=== PATIENT | male | born 1990 | race Caucasian/White ===

== ENCOUNTER 2017-06-17 12:31 | Emergency (ER) | payer OTHER ==
[~2017-06-17] VITALS: Wt 115.9 kg
--- NOTE | 2017-06-17 13:44 | RADRPT ---
PROCEDURE: XR Forearm Right CLINICAL INDICATION: Contusion TECHNIQUE: Two views of the right forearm. COMPARISON: None. FINDINGS: There are no fractures or dislocations. The mineralization is normal. The soft tissues are unremar kable. IMPRESSION: Unremarkable forearm. RPTAT: UU .Andrew Perez MD, Date Time Electronically viewed and signed by .Andrew Perez MD, on 06/17/2017 13:44 .d/
--- NOTE | 2017-06-17 13:44 | RADRPT ---
PROCEDURE: XR Elbow. CLINICAL INDICATION: Contusion TECHNIQUE: Three views of the right elbow are available for review COMPARISON: None available FINDINGS: There is no acute osseous or articular abnormality. No evidence for fracture. The radiocapitellar and ulnohumeral articular surfaces are preserved. No evidence for joint effusion or soft tissue ca lcifications. IMPRESSION: 1. No acute osseous abnormality. RPTAT: UU .Andrew Perez MD, MD Date Time Electronically viewed and signed by .Andrew Perez MD, MD on 06/17/2017 13:44 .d/
[2017-06-17] MEDS ORDERED: IBUP-1542 PO (13:50)
--- NOTE | 2017-06-17 17:09 | ERD ---
ER Documentation Chief Complaint Date/Time DATE: 06/17/17 TIME: 17:04 Chief Complaint RIGHT ELBOW PAIN AFTER HITTING IT , NO DEFORMITY. FEELS NUMB HPI This is a 27-year-old male presents to the ER after he hit his right elbow. Patient states that since then he has had a sharp pain to his elbow that radiates down his forearm and he feels a stinging sensation down up until his pinky. Patient denies any fevers or chills. He denies any redness or swelling of the area. Patient has not taken anything for the pain. ROS 12 point review of systems was done, all negative except per HPI. Medications Home Meds Active Scripts Ibuprofen* (Motrin*) 600 Mg Tab, 600 MG PO Q6, #30 TAB Prov:MARILIN MAN Nohelia 06/17/17 Allergies Allergies: Coded Allergies: No Known Allergy (Unverified , 06/17/17) PMhx/Soc History of Surgery: No Hx Neurological Disorder: No Hx Respiratory Disorders: No Hx Cardiac Disorders: No Hx Miscellaneous Medical Probl: No Hx Alcohol Use: No Hx Substance Use: Yes (marijuana) Hx Tobacco Use: No Smoking Status: Never smoker Physical Exam Vitals Vital Signs Date Time Temp Pulse Resp B/P Pulse Ox O2 Delivery O2 Flow Rate FiO2 06/17/17 12:33 98.8 79 20 160/85 98 Physical Exam GENERAL: The patient is well developed and appropriate for usual state of health , in no apparent distress. HEENT: Atraumatic. CHEST: Clear to auscultation bilaterally. There are no rales, wheezes or rhonchi. HEART: Regular rate and rhythm. No murmurs, clicks, rubs or gallops. EXTREMITIES: Right elbow is without obvious deformity or asymmetry when compared to the left elbow. No obvious surface trauma, ecchymosis or soft tissue swelling. Bony tenderness over the medial epicondyles. No tenderness to motion over the olecranon or radial head. Normal flexion, extension, supination, pronation. Normal muscle strength intact motor and sensation of ulnar median and radial nerves. Patient has full range of motion of his wrist, with no pain. NEURO: Alert and oriented. Results [address] [address] Radiology Main Line: [phone] DIAGNOSTIC IMAGING REPORT Patient: DOMENICO TURNER : 1990 Age: 27 Sex: M MR #: [id number] DOS: 06/17/17 0000 Ordering MD: MARILIN MAN PA-C Location: [facility] Room/Bed: PROCEDURE: XR Elbow. CLINICAL INDICATION: Contusion TECHNIQUE: Three views of the right elbow are available for review COMPARISON: None available FINDINGS: There is no acute osseous or articular abnormality. No evidence for fracture. The radiocapitellar and ulnohumeral articular surfaces are preserved. No evidence for joint effusion or soft tissue calcifications. IMPRESSION: 1. No acute osseous abnormality. RPTAT: UU .Andrew Perez MD, MD Date Time Electronically viewed and signed by .Andrew Perez MD, MD on 06/17/2017 13:44 .d/ CC: MARILIN MAN [place] [id number] Radiology Main Line: [phone] DIAGNOSTIC IMAGING REPORT Patient: DOMENICO TURNER : 1990 Age: 27 Sex: M MR #: [id number] DOS: 06/17/17 0000 Ordering MD: MARILIN MAN PA-C Location: [facility] Room/Bed: PROCEDURE: XR Forearm Right CLINICAL INDICATION: Contusion TECHNIQUE: Two views of the right forearm. COMPARISON: None. FINDINGS: There are no fractures or dislocations. The mineralization is normal. The soft tissues are unremarkable. IMPRESSION: Unremarkable forearm. RPTAT: UU .Andrew Perez MD, MD Date Time Electronically viewed and signed by .Andrew Perez MD, MD on 06/17/2017 13:44 .d/ CC: MARILIN MAN. Procedures/MDM This is a 27-year-old male presents to the ER with elbow pain. At this time patient has full and nonpainful range of motion of the joint his x-rays are normal. He is afebrile and well-appearing. Patient is neurovascularly intact. Suspicion for neurovascular impairment, peripheral nerve injury, badly displaced, intra-articular supracondylar fracture is low. Patient will be sent home with ibuprofen. He needs to follow-up with his primary care doctor within 1-2 days or return to ER sooner if symptoms worsen. My medical decision making sure with the patient he understands and agrees with plan. Departure Diagnosis: Primary Impression: Elbow contusion Condition: Stable Patient Instructions: Contusion, Elbow Additional Instructions: Call your primary care doctor TOMORROW for an appointment during the next 1-2 days.See the doctor sooner or return here if your condition worsens before your appointment time. MARILIN MAN Jun 17, 2017 17:09
== END 2017-06-17 14:09 | disposition home or self-care (01) ==
LOC: FTE 12:31
DX: S50.01XA Contusion of right elbow, initial encounter (principal); W22.8XXA Striking against or struck by other objects, initial encounter; Y92.9 Unspecified place or not applicable
CPT/HCPCS: 73080; 73090; Z7502

== ENCOUNTER 2018-08-22 19:32 | Emergency (ER) | END 2018-08-22 20:45 | disposition home or self-care (01) ==